=== PATIENT | female | born 1955 | race Caucasian/White ===

== ENCOUNTER → 2017-08-03 14:58 | Outpatient (CLI) | payer BC, SELFPAY ==
--- NOTE | 2017-08-03 15:01 | RAD_ITS ---
STUDY: X-RAY - LEFT FOOT CLINICAL: Female, 62 years old. Pain TECHNIQUE: Three view(s) of the foot. COMPARISON: None. FINDINGS: Bones: There are no acute osseous abnormalities. There are small spurs off the inferior and posterior calcaneus. Joints: There is mild hallux valgus deformity at the first MTP joint. There is bony overgrowth on the distal first metatarsal. Soft tissues: The soft tissues are unremarkable. Foreign body: None RAD/Foot min 3 Views IMPRESSION: There are mild degenerative changes at the first MTP joint with a mild hallux valgus deformity. There are small spurs off the inferior and posterior calcaneus. Electronically Signed: Christine Guerrero MD at 20:19 EST Tel Direct: [phone], Service support ,
== END ==
PROVIDERS: Family Provider Family Medicine; PCP Family Medicine; Visit Provider Family Medicine
DX: M79.672 Pain in left foot (principal)
CPT/HCPCS: 73630

== ENCOUNTER → 2019-04-17 08:30 | Outpatient (CLI) | payer BC, SELFPAY ==
[2019-04-17 11:08] LABS: Microalbumin,Random Urine 37.8 mg/L (NO RANGE EST.); Microalbumin:Creatinine Ratio 34.7 mg/g CRE (<30 mg/g CRE)
[2019-04-17 11:17] LABS: Anion Gap 7 (5-15); BUN 14 mg/dL (7-18); BUN/Creat Ratio 15.5 RATIO (10-20); Calcium,Total 9.4 mg/dL (8.5-10.1); Chloride 105 mmol/L (98-107); Cholesterol 156 mg/dL (200); EST Glomerular Filtration Rate 67 mL/min (>60); Est Glom Filt Rate - Afr Amer 82 mL/min (>60); Glucose 145 mg/dL (74-106); High Density Lipoprotein 48 mg/dL; Potassium 3.8 mmol/L (3.5-5.1); Sodium Level 137 mmol/L (136-145); Triglycerides 233 mg/dL; Very Low Density Lipoprotein 47 mg/dL (5-40)
== END ==
PROVIDERS: Family Provider Family Medicine; PCP Family Medicine; Referring Provider Family Medicine; Visit Provider Family Medicine
DX: E11.9 Type 2 diabetes mellitus without complications (principal)
CPT/HCPCS: 36415; 80048; 80061; 82043; 82570

== ENCOUNTER → 2019-06-18 12:17 | Outpatient (CLI) | payer BC, SELFPAY ==
[2019-06-18 14:26] LABS: Hemoglobin A1c 7.7 % (4.2-6.3); Vitamin D,25 Hydroxy 23.9 ng/mL (29.95-100.01)
== END ==
PROVIDERS: Family Provider Family Medicine; PCP Family Medicine; Referring Provider Family Medicine; Visit Provider Family Medicine
DX: Z00.00 Encounter for general adult medical examination without abnormal findings (principal); E11.9 Type 2 diabetes mellitus without complications
CPT/HCPCS: 36415; 82306; 83036

== ENCOUNTER → 2019-07-10 11:47 | Outpatient (CLI) | payer BC, SELFPAY ==
--- NOTE | 2019-07-10 11:50 | BI_ITS ---
MAMMOGRAPHY - BILATERAL SCREENING 3-D TOMOSYNTHESIS REASON FOR EXAM: Female, 64 years old. BILAT SCREENING - NO FAM HX - NO PREV SURG''S - PERTINENT HISTORY: No significant family history. TECHNIQUE: 2-D mammograms and 3-D Tomosynthesis of the breast (s) were performed. CAD was performed. COMPARISON: March 14, 2011. FINDINGS: The breast composition is composed of scattered fibroglandular density. Scattered benign calcifications are seen. No dense spiculated masses or suspicious microcalcifications are identified. No architectural distortion is identified. There is no skin thickening or retraction. There has been no significant change since the prior study. BI/SCREEN MAMM (CAD) W/PARESH BILAT IMPRESSION: No mammographic signs of malignancy. Routine yearly mammograms recommended. ASSESSMENT CATEGORY: BIRADS Category 1: Negative. A letter regarding these results will be sent to the patient by the facility within 30 days. FOLLOW UP RECOMMENDATION: Yearly follow up mammogram recommended. (A) Approximately 10% of breast cancers are not detected by mammography. A normal mammogram should not delay biopsy of a clinically suspicious abnormality. Electronically Signed: Miguel Harris MD at 12:46 EST , Service support ,
--- NOTE | 2019-07-10 12:25 | BD_ITS ---
STUDY: DUAL ENERGY X-RAY ABSORPTIOMETRY / DXA REASON FOR EXAM: Female, 64 years old. [employer] -- TYPE 2 DIABETIC- TAKES METFORMIN -- HX OF SMOKING -- TAKES CALCIUM AND MULTIVITAMIN -- DOES LITTLE EXERCISE -- VESNA OF 2.5 INCHES TECHNIQUE: Bone Mineral Density (BMD) measurements of lumbar spine and bilateral hips were obtained. COMPARISON: None. FINDINGS: Lumbar Spine (L1-L4): g/cm2 (1.131) / T-score (-0.4) / Z-score (0.9) Findings are suggestive of normal bone density with a low fracture risk. Left Femur Total: g/cm2 (0.776) / T-score (-1.8) / Z-score (-0.8) Left Femoral Neck: g/cm2 (0.759) / T-score (-2.0) / Z-score (-0.7) Right Femur Total: g/cm2 (0.777) / T-score (-1.8) / Z-score (-0.8) Right Femoral Neck: g/cm2 (0.796) / T-score (-1.7) / Z-score (-0.4) BD/Dexa Bone Density Study IMPRESSION: The patient is considered osteopenic as outlined below according to World Rigoberto Organization (WHO) criteria with a moderate fracture risk. Reference Information: The T-score is the number of standard deviations above or below the standard which is normal for young adults at their peak bone mineral density. The World Health Organization (WHO) interprets the T-scores as follows: Above -1 Normal bone density Between -1 and -2.5 Osteopenia Equal to / or below -2.5 Osteoporosis As a practical clinical guideline, osteopenia may be graded as follows: Mild -1 through -1.5 Moderate -1.6 through -2.0 Severe -2.1 through -2.4 The Z-score is the number of standard deviations above or below age-matched controls. A Z-score of less than -1.5 would be considered abnormal. References: 1. NIH Osteoporosis and Related Bone Diseases http://www.osteo.org 2. International Society for Clinical Densitometry http://www.iscd.org 3. National Osteoporosis Foundation http://www.nof.org Electronically Signed: Severo Pastor, at 12:18 EST , Service support ,
== END ==
PROVIDERS: Family Provider Family Medicine; PCP Family Medicine; Referring Provider Family Medicine; Visit Provider Family Medicine
DX: Z12.31 Encounter for screening mammogram for malignant neoplasm of breast (principal)
CPT/HCPCS: 77063; 77067; 77080

== ENCOUNTER → 2020-04-02 08:42 | Outpatient (CLI) | payer BC, SELFPAY ==
[2017-04-17 15:36] VITALS: BMI 30.7
[2020-04-02 10:13] LABS: Anion Gap 6 (5-15); BUN 12 mg/dL (7-18); Calcium,Total 9.2 mg/dL (8.5-10.1); Chloride 105 mmol/L (98-107); Cholesterol 205 mg/dL (200); EST Glomerular Filtration Rate 77 mL/min (>60); Est Glom Filt Rate - Afr Amer 93 mL/min (>60); Glucose 133 mg/dL (74-106); High Density Lipoprotein 50 mg/dL; Sodium Level 137 mmol/L (136-145); Triglycerides 211 mg/dL; Very Low Density Lipoprotein 42 mg/dL (5-40)
[2020-04-02 12:52] LABS: Microalbumin:Creatinine Ratio 125.8 mg/g CRE (<30 mg/g CRE)
== END ==
PROVIDERS: PCP Family Medicine; Referring Provider Family Medicine; Visit Provider Family Medicine
DX: E11.9 Type 2 diabetes mellitus without complications (principal); K21.9 Gastro-esophageal reflux disease without esophagitis
CPT/HCPCS: 36415; 80048; 80061; 82043; 82570

== ENCOUNTER → 2021-01-03 08:37 | Outpatient (CLI) | payer BC, SELFPAY ==
[2017-04-17 15:36] VITALS: BMI 30.7
[2021-01-03 10:40] LABS: Anion Gap 10 (5-15); BUN 13 mg/dL (7-18); BUN/Creat Ratio 12.6 RATIO (10-20); Calcium,Total 9.1 mg/dL (8.5-10.1); Chloride 103 mmol/L (98-107); Cholesterol 222 mg/dL (200); Creatinine, Serum 1.03 mg/dL (0.55-1.02); EST Glomerular Filtration Rate 57 mL/min (>60); Est Glom Filt Rate - Afr Amer 70 mL/min (>60); Glucose 163 mg/dL (74-106); High Density Lipoprotein 49 mg/dL; Potassium 3.4 mmol/L (3.5-5.1); Sodium Level 140 mmol/L (136-145); Triglycerides 247 mg/dL; Very Low Density Lipoprotein 49 mg/dL (5-40)
[2021-01-03 12:00] LABS: Microalbumin,Random Urine 74.6 mg/L (NO RANGE EST.); Microalbumin:Creatinine Ratio 127.3 mg/g CRE (<30 mg/g CRE)
== END ==
PROVIDERS: PCP Family Medicine; Visit Provider Family Medicine
DX: E11.9 Type 2 diabetes mellitus without complications (principal)
CPT/HCPCS: 36415; 80048; 80061; 82043; 82570

== ENCOUNTER → 2021-07-04 08:43 | Outpatient (CLI) | payer BC, SELFPAY ==
[2021-07-04 11:20] LABS: Anion Gap 7 (5-15); BUN 12 mg/dL (7-18); BUN/Creat Ratio 13.3 RATIO (10-20); Calcium,Total 9.2 mg/dL (8.5-10.1); Chloride 107 mmol/L (98-107); Cholesterol 140 mg/dL (200); EST Glomerular Filtration Rate 67 mL/min (>60); Est Glom Filt Rate - Afr Amer 81 mL/min (>60); Glucose 177 mg/dL (74-106); High Density Lipoprotein 49 mg/dL; Sodium Level 139 mmol/L (136-145); Triglycerides 173 mg/dL; Very Low Density Lipoprotein 35 mg/dL (5-40)
== END ==
PROVIDERS: PCP Family Medicine; Visit Provider Family Medicine
DX: E11.9 Type 2 diabetes mellitus without complications (principal)
CPT/HCPCS: 36415; 80048; 80061

== ENCOUNTER → 2022-03-27 | Outpatient (CLI) | payer BC, SELFPAY ==
--- NOTE | 2022-03-27 12:35 | RAD_ITS ---
STUDY: X-RAY - LEFT FOOT CLINICAL: Female, 66 years old. Pain and stiffness TECHNIQUE: 3 view(s) of the foot. COMPARISON: None. FINDINGS: Normal talus, and tarsal bones. Calcaneal spurs. Normal visualized subtalar, talonavicular, calcaneocuboid, tarsal and tarsometatarsal articulations. Normal metatarsi. There is degenerative arthrosis of the metatarsophalangeal joint of the hallux . Normal tibial and fibular sesamoid bones. Normal interphalangeal joint of the great toe. Normal phalanges of the great toe. Normal second through fifth metatarsophalangeal joints. Age consistent PIP and DIP joint arthrosis The soft tissue structures are unremarkable. There is no demonstrated fracture. RAD/Foot min 3 Views IMPRESSION: Degenerative arthrosis, no demonstrated fracture or suspicious osseous lesion Calcaneal spurs Electronically Signed: Lisandro Pitt MD at 13:12 EDT ,
== END | disposition home or self-care (01) ==
PROVIDERS: PCP Family Medicine; Referring Provider Family Medicine; Visit Provider Family Medicine
DX: M79.672 Pain in left foot (principal)
CPT/HCPCS: 73630

== ENCOUNTER → 2022-04-06 | Outpatient (CLI) | payer BC, SELFPAY ==
[2022-04-06 10:15] LABS: Anion Gap 9 (5-15); BUN 12 mg/dL (7-18); BUN/Creat Ratio 14.3 RATIO (10-20); Calcium,Total 9.4 mg/dL (8.5-10.1); Chloride 106 mmol/L (98-107); Cholesterol 148 mg/dL (200); Creatinine, Serum 0.84 mg/dL (0.55-1.02); EST Glomerular Filtration Rate 73 mL/min (>60); Est Glom Filt Rate - Afr Amer 88 mL/min (>60); Glucose 170 mg/dL (74-106); High Density Lipoprotein 52 mg/dL; Potassium 3.9 mmol/L (3.5-5.1); Sodium Level 140 mmol/L (136-145); Triglycerides 175 mg/dL; Very Low Density Lipoprotein 35 mg/dL (5-40)
== END | disposition home or self-care (01) ==
LOC: MFPLAB 08:35
PROVIDERS: PCP Family Medicine; Referring Provider Family Medicine; Visit Provider Family Medicine
DX: E11.9 Type 2 diabetes mellitus without complications (principal)
CPT/HCPCS: 36415; 80048; 80061

== ENCOUNTER → 2022-12-28 | Outpatient (CLI) | payer MEDICARE, OTHER, SELFPAY ==
[2022-12-28 10:53] LABS: Anion Gap 7 (5-15); BUN 13 mg/dL (7-18); BUN/Creat Ratio 16.2 RATIO (10-20); Calcium,Total 9.4 mg/dL (8.5-10.1); Chloride 108 mmol/L (98-107); Cholesterol 214 mg/dL (200); EST Glomerular Filtration Rate 76 mL/min (>60); Est Glom Filt Rate - Afr Amer 92 mL/min (>60); Glucose 146 mg/dL (74-106); High Density Lipoprotein 53 mg/dL; Potassium 3.7 mmol/L (3.5-5.1); Sodium Level 138 mmol/L (136-145); Triglycerides 179 mg/dL; Very Low Density Lipoprotein 36 mg/dL (5-40)
[2022-12-28 11:18] LABS: Microalbumin:Creatinine Ratio 148.3 mg/g CRE (<30 mg/g CRE)
== END | disposition home or self-care (01) ==
LOC: MTLAB 08:51
PROVIDERS: PCP Family Medicine; Referring Provider Family Medicine; Visit Provider Family Medicine
DX: E11.9 Type 2 diabetes mellitus without complications (principal)
CPT/HCPCS: 36415; 80048; 80061; 82043; 82570

== ENCOUNTER → 2023-05-15 | Outpatient (CLI) | payer MEDICARE, OTHER, SELFPAY ==
--- NOTE | 2023-05-15 11:42 | RAD_ITS ---
EXAM: XR LEFT TOES, 2 OR MORE VIEWS CLINICAL INDICATION: Left 2nd toe injury TECHNIQUE: Frontal, lateral and oblique views of the toes of the left foot. COMPARISON: Left foot, 03/27/2022. FINDINGS: BONES/JOINTS: Minimally angulated transverse fracture through the mid diaphysis of the second proximal phalanx. Periosteal reaction/callus suggesting healing. Degenerative changes of the first metatarsal phalangeal joint with evidence of hallux valgus on these nonweightbearing views correlating with the comparison examinations. Evidence of likely chronic stress reactive changes of the second through fourth metatarsals with cortical thickening of the diaphyses and necks, new since the prior examination. No dislocation. SOFT TISSUES: Soft tissue swelling in the forefoot. No radiopaque foreign body. RAD/Toe(s) Min 2 Views IMPRESSION: 1. Minimally angulated transverse fracture through the mid diaphysis of the second proximal phalanx. Periosteal reaction/callus suggesting healing. 2. Degenerative changes of the first metatarsal phalangeal joint with evidence of hallux valgus on these nonweightbearing views correlating with the comparison examinations. 3. Likely chronic stress reactive changes of the second or fourth metatarsals. Electronically Signed: Balwinder Canas DO at 23:25 EST ,
== END | disposition home or self-care (01) ==
LOC: MTRAD 11:40
PROVIDERS: PCP Family Medicine; Referring Provider Family Medicine; Visit Provider Family Medicine
DX: S99.922A Unspecified injury of left foot, initial encounter (principal)
CPT/HCPCS: 73660

== ENCOUNTER → 2023-06-18 | Outpatient (CLI) | payer MEDICARE, OTHER, SELFPAY ==
[2023-06-18 12:36] LABS: Anion Gap 7 (5-15); BUN 14 mg/dL (7-18); BUN/Creat Ratio 15.8 RATIO (10-20); Calcium,Total 8.6 mg/dL (8.5-10.1); Chloride 107 mmol/L (98-107); Cholesterol 197 mg/dL (200); Creatinine, Serum 0.88 mg/dL (0.55-1.02); EST Glomerular Filtration Rate 68 mL/min (>60); Est Glom Filt Rate - Afr Amer 82 mL/min (>60); Glucose 168 mg/dL (74-106); High Density Lipoprotein 57 mg/dL; Sodium Level 138 mmol/L (136-145); Triglycerides 224 mg/dL; Very Low Density Lipoprotein 45 mg/dL (5-40)
[2023-06-19 15:39] LABS: Microalbumin,Random Urine 36.3 mg/L (NO RANGE EST.); Microalbumin:Creatinine Ratio 72.6 mg/g CRE (<30 mg/g CRE)
== END | disposition home or self-care (01) ==
LOC: MFPLAB 10:08
PROVIDERS: PCP Family Medicine; Visit Provider Family Medicine
DX: E11.9 Type 2 diabetes mellitus without complications (principal)
CPT/HCPCS: 36415; 80048; 80061; 82043; 82570

== ENCOUNTER → 2023-09-21 | Outpatient (CLI) | payer MEDICARE, OTHER, SELFPAY ==
[2023-09-21 11:25] LABS: Hemoglobin A1c 6.6 % (3.8-5.6)
[2023-09-21 11:32] LABS: Anion Gap 7 (5-15); BUN 13 mg/dL (7-18); BUN/Creat Ratio 13.7 RATIO (10-20); Calcium,Total 8.8 mg/dL (8.5-10.1); Chloride 105 mmol/L (98-107); Creatinine, Serum 0.95 mg/dL (0.55-1.02); EST Glomerular Filtration Rate 62 mL/min (>60); Est Glom Filt Rate - Afr Amer 76 mL/min (>60); Glucose 158 mg/dL (74-106); Potassium 4.1 mmol/L (3.5-5.1); Sodium Level 137 mmol/L (136-145)
== END | disposition home or self-care (01) ==
LOC: MTLAB 09:12
PROVIDERS: PCP Family Medicine; Referring Provider Family Medicine; Visit Provider Family Medicine
DX: E11.9 Type 2 diabetes mellitus without complications (principal)
CPT/HCPCS: 36415; 80048; 83036

== ENCOUNTER → 2023-12-17 | Outpatient (CLI) | payer MEDICARE, OTHER, SELFPAY ==
[2023-12-17 13:21] LABS: AST(SGOT) 27 U/L (15-37); Alanine Aminotransfer ALT/SGPT 26 U/L (13-56); Albumin, Serum 3.8 g/dL (3.2-5.0); Alkaline Phosphatase 73 U/L (45-117); Anion Gap 5 (5-15); BUN 14 mg/dL (7-18); BUN/Creat Ratio 14.4 RATIO (10-20); Chloride 108 mmol/L (98-107); Cholesterol 199 mg/dL (200); Creatinine, Serum 0.97 mg/dL (0.55-1.02); EST Glomerular Filtration Rate 61 mL/min (>60); Est Glom Filt Rate - Afr Amer 74 mL/min (>60); Globulin 3.9 g/dL (2.2-4.2); Glucose 158 mg/dL (74-106); High Density Lipoprotein 51 mg/dL; Potassium 4.1 mmol/L (3.5-5.1); Protein, Total 7.7 g/dL (6.4-8.2); Sodium Level 137 mmol/L (136-145); Triglycerides 233 mg/dL; Very Low Density Lipoprotein 47 mg/dL (5-40)
[2023-12-17 13:26] LABS: Hemoglobin A1c 6.3 % (3.8-5.6)
== END | disposition home or self-care (01) ==
LOC: MFPLAB 10:08
PROVIDERS: PCP Family Medicine; Visit Provider Family Medicine
DX: E11.9 Type 2 diabetes mellitus without complications (principal)
CPT/HCPCS: 36415; 80053; 80061; 83036

== ENCOUNTER → 2023-12-19 | Outpatient (CLI) | payer MEDICARE, OTHER, SELFPAY ==
[2023-12-19 16:09] LABS: Microalbumin,Random Urine 46.1 mg/L (NO RANGE EST.); Microalbumin:Creatinine Ratio 63.8 mg/g CRE (<30 mg/g CRE)
== END | disposition home or self-care (01) ==
LOC: LABSPEC 13:43
PROVIDERS: PCP Family Medicine; Visit Provider Family Medicine
DX: E11.9 Type 2 diabetes mellitus without complications (principal)
CPT/HCPCS: 82043; 82570

== ENCOUNTER → 2024-02-29 | Outpatient (CLI) | payer MEDICARE, OTHER, SELFPAY | END | disposition home or self-care (01) | PROVIDERS: PCP Family Medicine; Visit Provider Family Medicine | DX: R19.7 Diarrhea, unspecified (principal) | CPT/HCPCS: 87493 ==

== ENCOUNTER → 2024-04-15 | Outpatient (CLI) | payer MEDICARE, OTHER, SELFPAY ==
--- NOTE | 2024-04-15 14:27 | BI_ITS ---
MAMMOGRAPHY - BILATERAL SCREENING REASON FOR EXAM: Female, 68 years old. Routine annual screening examination. PERTINENT HISTORY: Non-contributory. TECHNIQUE: Digital bilateral breast paresh (3D mammographic acquisition) in the CC and MLO projections. 2-D mediolateral oblique (MLO) and craniocaudad (CC) views of both breasts were obtained. CAD: Full Field Digital Mammography with Computer Added Detection was performed. COMPARISON: Comparison is made with prior study dated January 08, 2020 and March 14, 2011. FINDINGS: Breast Composition: There are scattered areas of fibroglandular density. There are no dominant masses or suspicious calcifications. Stable small benign-appearing bilateral axillary lymph nodes. No other significant abnormalities are identified. There has been no significant change since the prior study. BI/SCRN MAMM (CAD)W/PARESH BILAT IMPRESSION: Stable bilateral screening mammogram. Yearly follow-up mammogram recommended. (A) ASSESSMENT CATEGORY: BIRADS Category 2: Benign. A letter regarding these results will be sent to the patient by the facility within 30 days. Approximately 10% of breast cancers are not detected by mammography. A normal mammogram should not delay biopsy of a clinically suspicious abnormality. [id number] Electronically Signed: Severo Pastor MD at 15:26 EDT ,
--- NOTE | 2024-04-15 14:30 | BD_ITS ---
STUDY: DUAL ENERGY X-RAY ABSORPTIOMETRY / DXA REASON FOR EXAM: Female, 68 years old. V76.12ScreeningBONE DENSITY REASON FOR EXAM TECHNIQUE: Bone Mineral Density (BMD) measurements of lumbar spine and bilateral hips were obtained. COMPARISON: Comparison is made with prior study dated July 10, 2019. FINDINGS: Lumbar Spine (L1-L4): g/cm2 (0.951) / T-score (-0.9) / Z-score (1.0) Findings are suggestive of normal bone density with a low fracture risk. Left Femur Total: g/cm2 (0.685) / T-score (-2.1) / Z-score (-0.8) Left Femoral Neck: g/cm2 (0.613) / T-score (-2.1) / Z-score (-0.5) Right Femur Total: g/cm2 (0.744) / T-score (-1.6) / Z-score (-0.3) Right Femoral Neck: g/cm2 (0.683) / T-score (-1.5) / Z-score (0.1) The T-Scores on the most recent prior examination were: Lumbar Spine (L1-L4): There has been worsening of bone density since the previous examination. Left Femur Total: which represents a worsening of 4.4%. Right Femur Total: which represents an improvement of 3.6%. BD/Dexa Bone Density Study IMPRESSION: The patient is considered osteopenic as outlined below according to World Rigoberto Organization (WHO) criteria with a high fracture risk. There has been worsening of bone density since the previous examination. Reference Information: The T-score is the number of standard deviations above or below the standard which is normal for young adults at their peak bone mineral density. The World Health Organization (WHO) interprets the T-scores as follows: Above -1 Normal bone density Between -1 and -2.5 Osteopenia Equal to / or below -2.5 Osteoporosis As a practical clinical guideline, osteopenia may be graded as follows: Mild -1 through -1.5 Moderate -1.6 through -2.0 Severe -2.1 through -2.4 The Z-score is the number of standard deviations above or below age-matched controls. A Z-score of less than -1.5 would be considered abnormal. References: 1. NIH Osteoporosis and Related Bone Diseases www osteo.org 2. International Society for Clinical Densitometry www iscd.org 3. National Osteoporosis Foundation www nof.org Electronically Signed: Severo Pastor MD at 9:27 EDT ,
== END | disposition home or self-care (01) ==
LOC: OPBD 14:27
PROVIDERS: PCP Family Medicine; Referring Provider Registered Nurse; Visit Provider Registered Nurse
DX: Z12.31 Encounter for screening mammogram for malignant neoplasm of breast (principal); Z13.820 Encounter for screening for osteoporosis; M85.89 Other specified disorders of bone density and structure, multiple sites
CPT/HCPCS: 77063; 77067; 77080

== ENCOUNTER → 2024-09-11 | Outpatient (CLI) | payer MEDICARE, OTHER, SELFPAY ==
[2024-09-11 13:14] LABS: ALB/GLOB Ratio 1.3 RATIO (0.9-2.4); AST(SGOT) 31 U/L (<=31); Alanine Aminotransfer ALT/SGPT 26 U/L (<=34); Albumin, Serum 4.4 g/dL (3.4-4.8); Alkaline Phosphatase 73 U/L (35-104); Anion Gap 13 (5-15); BUN 15 mg/dL (4-19); BUN/Creat Ratio 15.4 RATIO (10-20); Carbon Dioxide 23.5 mmol/L (21.0-32.0); Chloride 101 mmol/L (98-108); Cholesterol 194 mg/dL (<=200); EST Glomerular Filtration Rate 62 (>60); Globulin 3.4 g/dL (2.2-4.2); Glucose 165 mg/dL (70-99); High Density Lipoprotein 60 mg/dL; Low Density Lipoprotein Calc. 98 mg/dL; Potassium 4.4 mmol/L (3.3-5.1); Protein, Total 7.8 g/dL (5.9-8.4); Sodium Level 137 mmol/L (133-145); Total Bilirubin 0.42 mg/dL (0.00-1.30); Triglycerides 181 mg/dL; Very Low Density Lipoprotein 36 mg/dL (5-40); cholesterol:hdl ratio screen 3.22
== END | disposition home or self-care (01) ==
LOC: MTLAB 09:28
PROVIDERS: PCP Family Medicine; Referring Provider Family Medicine; Visit Provider Family Medicine
DX: E11.9 Type 2 diabetes mellitus without complications (principal)
CPT/HCPCS: 36415; 80053; 80061

== ENCOUNTER → 2024-12-16 | Outpatient (CLI) | payer MEDICARE, OTHER, SELFPAY ==
[2024-12-17 02:55] LABS: Microalbumin:Creatinine Ratio 789.1 mg/g CRE
== END | disposition home or self-care (01) ==
LOC: LABSPEC 16:30
PROVIDERS: PCP Family Medicine; Referring Provider Family Medicine; Visit Provider Family Medicine
DX: E11.9 Type 2 diabetes mellitus without complications (principal)
CPT/HCPCS: 82043; 82570

== ENCOUNTER → 2025-06-08 | Outpatient (CLI) | payer MEDICARE, OTHER, SELFPAY ==
[2025-06-08 10:45] LABS: Anion Gap 10 (5-15); BUN 10 mg/dL (4-19); BUN/Creat Ratio 10.0 RATIO (10-20); Calcium,Total 9.3 mg/dL (7.6-11.0); Carbon Dioxide 24.7 mmol/L (21.0-32.0); Chloride 102 mmol/L (98-108); Cholesterol 201 mg/dL (<=200); Glucose 196 mg/dL (70-99); Low Density Lipoprotein Calc. 108 mg/dL; Potassium 4.4 mmol/L (3.3-5.1); Triglycerides 248 mg/dL; Very Low Density Lipoprotein 50 mg/dL (5-40); cholesterol:hdl ratio screen 3.99
== END | disposition home or self-care (01) ==
LOC: MFPLAB 09:06
PROVIDERS: PCP Family Medicine; Visit Provider Family Medicine
DX: E11.9 Type 2 diabetes mellitus without complications (principal)
CPT/HCPCS: 36415; 80048; 80061